=== PATIENT | female | born 2000 | race Caucasian/White ===

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

== ENCOUNTER 2022-11-18 14:21 | Emergency (ER) | payer OTHER ==
[~2022-11-18] VITALS: Ht 165.1 cm; Wt 60.3 kg
[~2022-11-18 14:21] MED LIST: IBUP-1842 PO; LOPE1TAB14 PO; ONDA-188 SL
[2022-11-18 14:27] VITALS: BP 154/77
--- NOTE | 2022-11-18 14:33 | NUR ---
PT AMB TO BED 9
[2022-11-18] MEDS ORDERED: NACL 0.9% 1,000 ML IV ONE (14:45)
--- NOTE | 2022-11-18 14:54 | NUR ---
22/F WALKED IN C/O SHAKING, HEADACHE, LEFT EAR PAIN AND SORE THROAT ONSET TODAY. AAO4, AMBULATORY, TACHY, DENIES ANY URINARY S.SX. PMH: DENIES
--- NOTE | 2022-11-18 14:56 | NUR ---
IV ESTABLISHED TO RIGHT AC WITH 20G. URINE COLLECTED AND SENT TO LAB
[2022-11-18 14:59] LABS: APPEARANCE,URINE CLEAR (CLEAR); BILIRUBIN,URINE NEGATIVE (NEGATIVE); BLOOD, URINE 3+ (NEGATIVE); COLOR,URINE YELLOW (YELLOW); LEUKOCYTE ESTERASE ,URINE NEGATIVE (NEGATIVE); NITRITE, URINE NEGATIVE (NEGATIVE); PH,URINE 6.5 (5.0-9.0); UGLUCOSE NEGATIVE (NEGATIVE)
[2022-11-18 15:14] LABS: RBC,URINE 20-50 /HPF (0-5)
[2022-11-18 15:15] LABS: OTHER CASTS, URINE None Seen /LPF (None Seen); WBC,URINE 0-5 /HPF (0-5); YEAST,URINE Few /HPF (None Seen)
[2022-11-18 15:27] LABS: BASOPHILS % (AUTO) 0.1 % (0.0-2.0); EOSINOPHILS % (AUTO) 0.2 % (0.0-4.0); HEMATOCRIT 38.8 % (36-48); HEMOGLOBIN 12.9 g/dL (12.0-16.0); LYMPHOCYTES # (AUTO) 0.7 K/uL (2.5-16.5); MEAN CORPUSCULAR HEMOGLOBIN 28 pg (27-31); MEAN CORPUSCULAR HGB CONC 33 g/dL (33-37); MEAN CORPUSCULAR VOLUME 83.7 fL (80-94); MONOCYTES # (AUTO) 0.4 K/uL (0.8-1.0); MONOCYTES % (AUTO) 4.8 % (1.7-9.3); NEUTROPHILS # (AUTO) 7.7 K/uL (1.8-7.7); NEUTROPHILS % (AUTO) 86.9 % (42.2-75.2); PLATELET COUNT (AUTO) 148 K/uL (140-450); RED BLOOD CELL COUNT(AUTO) 4.63 MIL/uL (4.20-5.40); RED CELL DISTRIBUTION WIDTH 16.3 % (11.6-13.7); WHITE BLOOD COUNT (AUTO) 8.8 K/uL (4.5-11.0)
[2022-11-18 15:49] LABS: ALBUMIN 3.8 g/dL (3.4-5.0); ANION GAP 14.7 (8-16); CARBON DIOXIDE 26.1 mmol/L (21-32); CREATININE 0.7 mg/dL (0.6-1.3); POTASSIUM 3.8 mmol/L (3.5-5.1); TOTAL BILIRUBIN 0.3 mg/dL (0.0-1.0)
[2022-11-18] MEDS ORDERED: IBUPROFEN 400 MG TAB PO ONE (16:00)
[2022-11-18] MEDS ORDERED: ONDA-188 SL (16:02)
[2022-11-18] MEDS ORDERED: IBUP-1842 PO (16:02)
== END 2022-11-18 16:05 | disposition home or self-care (01) ==
LOC: MED 14:21
DX: B34.9 Viral infection, unspecified (principal); Z20.822 Contact with and (suspected) exposure to COVID-19; M54.50 Low back pain, unspecified
CPT/HCPCS: 36415; 80053; 81001; 81025; 83690; 85025; 87086; 99283; J7030

== ENCOUNTER 2023-05-24 17:20 | Emergency (ER) | payer OTHER ==
[~2023-05-24] VITALS: Ht 165.1 cm; Wt 59.4 kg
[2023-05-24 17:47] VITALS: BP 103/64; PULSE 66; RESP 18; TEMP 97.9
[2023-05-24] MEDS ORDERED: NAPR-1704 PO (19:19)
[2023-05-24] MEDS ORDERED: LIDO1ADH53 TP (19:19)
[2023-05-24] MEDS ORDERED: KETOROLAC 30 MG/ML VIAL IM ONE (19:20)
--- NOTE | 2023-05-24 19:30 | NUR ---
Patient discharged with v/s stable. Written and verbal after care instructions given and explained. Patient verbalized understanding. Ambulatory with steady gait. All questions addressed prior to discharge. Advised to follow up with PMD.
== END 2023-05-24 19:30 | disposition home or self-care (01) ==
LOC: MED 17:20
DX: S39.012A Strain of muscle, fascia and tendon of lower back, initial encounter (principal); Z79.899 Other long term (current) drug therapy; Z79.1 Long term (current) use of non-steroidal anti-inflammatories (NSAID); X58.XXXA Exposure to other specified factors, initial encounter; Y92.89 Other specified places as the place of occurrence of the external cause; Y93.89 Activity, other specified; Y99.8 Other external cause status
CPT/HCPCS: 72100; 81025; 96372; 99283; J1885